=== PATIENT | male | born 2000 | race Caucasian/White ===

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

== ENCOUNTER 2019-04-05 23:13 | Emergency (ER) | payer OTHER ==
[2019-04-06] MEDS: KETOROLAC 60 MG INJ IM (02:37)
[2019-04-06] MEDS: IBUPROFEN 800 MG TAB PO (03:27)
== END 2019-04-06 03:34 | disposition home or self-care (01) ==
LOC: FTE 23:13
DX: M25.562 Pain in left knee (principal); F17.210 Nicotine dependence, cigarettes, uncomplicated
CPT/HCPCS: 73562; 96372; 99284-25